=== PATIENT | male | born 1960 | race Two or more races ===

== ENCOUNTER 2024-07-09 10:45 | Outpatient (CLI) | payer OTHER | END 2024-07-09 11:03 | disposition home or self-care (01) | LOC: TOM 10:45 | PROVIDERS: ATTEND Urology | DX: N20.1 Calculus of ureter (principal) ==

== ENCOUNTER 2024-07-09 11:49 | Outpatient (CLI) | payer OTHER ==
[2024-07-09 13:40] LABS: CALCIUM 9.7 mg/dL (8.5-10.1); CREATININE SERUM 1.33 mg/dL (0.70-1.30); GFR 54.13; POTASSIUM 4.27 mEq/L (3.5-5.1)
== END 2024-07-09 11:53 | disposition home or self-care (01) ==
LOC: LAB 11:49
PROVIDERS: ATTEND Urology
DX: N20.1 Calculus of ureter (principal)